=== PATIENT | female | born 1990 | race Caucasian/White ===

== ENCOUNTER 2023-07-25 17:05 | Emergency (ER) | payer OTHER ==
[2023-07-25 17:26] VITALS: O2SAT 100
[2023-07-25 17:56] LABS: BASOPHILS % (AUTO) 0.2 %; EOSINOPHILS # (AUTO) 0.1 10^3/uL (0.0-0.7); EOSINOPHILS % (AUTO) 1.1 %; HCT - HEMATOCRIT 36.1 % (37.0-47.0); HGB - HEMOGLOBIN 11.8 g/dL (12.0-16.0); LYMPHOCYTES # (AUTO) 2.7 10^3/uL (1.5-3.5); LYMPHOCYTES % (AUTO) 26.7 %; MEAN CORPUSCULAR HEMOGLOBIN 27.1 pg (27.0-31.0); MEAN CORPUSCULAR HGB CONC 32.7 g/dL (32.0-36.0); MEAN PLATELET VOLUME 10.2 fL (7.9-10.8); MONOCYTES # (AUTO) 0.6 10^3/uL (0.0-1.0); MONOCYTES % (AUTO) 5.5 %; NEUTROPHILS # (AUTO) 6.6 10^3/uL (1.5-6.6); NEUTROPHILS % (AUTO) 66.2 %; PLT - PLATELET COUNT 331 10^3/uL (130-450); RED BLOOD COUNT 4.35 10^6/uL (4.20-5.40); RED CELL DISTRIBUTION WIDTH 12.7 % (12.0-15.0)
[2023-07-25 18:08] LABS: BILIRUBIN,URINE NEGATIVE (NEGATIVE); GLUCOSE, URINE (UA) NEGATIVE (NEGATIVE); KETONES,URINE (UA) NEGATIVE (NEGATIVE); LEUKOCYTE ESTERASE, URINE NEGATIVE (NEGATIVE); NITRITE,URINE NEGATIVE (NEGATIVE); OCCULT BLOOD,URINE LARGE (NEGATIVE); PROTEIN,URINE TRACE mg/dL (NEGATIVE); UROBILINOGEN,URINE 0.2 (NORMAL) E.U./dL (NORMAL)
[2023-07-25 18:10] LABS: ALBUMIN/GLOBULIN RATIO 1.5 (1.0-2.2); BILIRUBIN,TOTAL 0.2 mg/dL (0.2-1.0); CALCIUM 9.1 mg/dL (8.5-10.3); CREATININE 0.6 mg/dL (0.6-1.3); POTASSIUM 3.7 mmol/L (3.5-4.5); TOTAL PROTEIN 6.7 g/dL (6.4-8.9)
[2023-07-25 18:10] LABS: CLARITY,URINE CLOUDY (CLEAR); HCG UR QUAL NEGATIVE
[2023-07-25 18:13] LABS: PT - PROTHROMBIN TIME 11.2 secs (9.9-12.6)
[2023-07-25 18:18] LABS: BACTERIA,URINE Rare /HPF (None Seen); RBC,URINE TNTC /HPF (0-5); SQUAMOUS EPITHELIAL CELL,UR RARE Squamous (<= Few); WBC,URINE 0-3 /HPF (0-5)
[2023-07-25 18:20] LABS: PARTIAL THROMBOPLASTIN TIME 35.5 secs (24.9-33.3)
--- NOTE | 2023-07-25 18:58 | Ultrasound Report ---
PROCEDURE: Pelvic w/Transvag+Doppler Comp INDICATIONS: vaginal bleeding TECHNIQUE: Real-time scanning was performed of the pelvic organs, with image documentation. Additional endovagi nal scanning was necessary due to incomplete visualization of the adnexal and endometrial structures by transabdominal scanning. Doppler interrogation was performed of the ovaries bilaterally. COMPARISON: None. FINDINGS: Uterus: 8.5 x 4.8 x 5.6 cm. Retroverted positioning. Endometrium measures up to 19 mm, there is incre ased vascularity. Ovaries: Right ovarian volume is 14 cc. Left ovarian volume is 27 cc. There is a cyst in the left ova ry measuring up to 3.8 x 2.8 cm. Color and spectral Doppler: flows are documented Other: Small amount of free fluid is present. IMPRESSION: Endometrium measures at the upper limit of normal, depending on menstrual cycle timing. There is mild ly increased vascularity. No distinct mass. Clinical follow-up recommended. MRI could be obtained if there is high concern. Bilateral ovarian follicles and cysts. No evidence of torsion. Reviewed by: Dre Montero MD on 07/25/2023 6:57 PM PDT Approved by: Dre Montero MD on 07/25/2023 6:57 PM PDT Station ID: [id number]
[2023-07-25] MEDS ORDERED: TRANEXAMIC ACID 1,000 MG in SODIUM CHLORIDE 0.9% 100ML 100 ML IV STA (19:04)
--- NOTE | 2023-07-25 19:07 | ED Physician Documentation ---
History of Present Illness - Stated complaint Stated Complaint: ,DIZZY,STONE - Chief complaint Chief Complaint: General - History obtained from History obtained from: Patient - History of Present Illness Timing: How many days ago (14) Pain level max: 2 Pain level now: 2 - Additonal information Additional information: 33-year-old female presents to the emergency department stating that she has had heavy vaginal bleeding for the past 14 days. She states her normal menstrual cycle was 26 days and she normally bleeds heavily for about 7 days. She felt lightheaded and dizzy today so came into the emergency department. Has not seen her PCP. Does not have a air pollution control engineer. No chest pain. Patient is not on any blood thinners. Review of Systems Constitutional: denies: Fever, Chills Respiratory: denies: Cough : denies: Now EGA Skin: denies: Rash Musculoskeletal: denies: Neck pain, Back pain Neurologic: denies: Headache PD PAST MEDICAL HISTORY - Past Medical History Past Medical History: No - Present Medications Home Medications: Ambulatory Orders Medication Instructions Recorded Confirmed Norethindrone AC-Eth Estradiol 1 tab PO DAILY #1 each 07/25/23 [Loestrin 21 1.5-30 Tablet] Sertraline [Zoloft] 25 mg PO DAILY 07/25/23 07/25/23 - Allergies Allergies/Adverse Reactions: Allergies Allergy/AdvReac Type Severity Reaction Status Date / Time No Known Drug Allergies Allergy Verified 07/25/23 17:22 - Living Situation Living Situation: reports: With family Living Arrangement: reports: At home - Social History Does the pt have substance abuse?: No - Family History Family history: reports: Non contributory PD ED PE NORMAL - Vitals Vital signs reviewed: Yes - General General: Alert and oriented X 3, No acute distress - HEENT HEENT: PERRL, Moist mucous membranes - Neck Neck: Supple, no meningeal sign - Cardiac Cardiac: RRR, Strong equal pulses - Respiratory Respiratory: No respiratory distress, Clear bilaterally - Abdomen Abdomen: Soft, Non tender, Non distended - Female Female : Pt declined - Derm Derm: Warm and dry - Extremities Extremities: No edema - Neuro Neuro: Alert and oriented X 3 - Psych Psych: Normal mood, Normal affect Results - Vitals Vitals: Vital Signs - 24 hr 07/25/23 07/25/23 17:18 19:22 Temperature 37.1 C Heart Rate 89 78 Respiratory 16 16 Rate Blood Pressure 120/74 109/78 O2 Saturation 100 100 Oxygen O2 Source Room air - Labs Labs: Laboratory Tests 07/25/23 07/25/23 07/25/23 17:30 17:50 17:50 WBC 10.0 RBC 4.35 Hgb 11.8 L Hct 36.1 L MCV 83.0 MCH 27.1 MCHC 32.7 RDW 12.7 Plt Count 331 MPV 10.2 Neut # (Auto) 6.6 Lymph # (Auto) 2.7 Hardy # (Auto) 0.6 Eos # (Auto) 0.1 Baso # (Auto) 0.0 Absolute Nucleated RBC 0.00 Nucleated RBC % 0.0 PT INR APTT Sodium 137 Potassium 3.7 Chloride 104 Carbon Dioxide 28 Anion Gap 5.0 L BUN 16 Creatinine 0.6 Estimated GFR (MDRD) 117 Glucose 94 Calcium 9.1 Total Bilirubin 0.2 AST 10 ALT 13 Alkaline Phosphatase 52 Total Protein 6.7 Albumin 4.0 Globulin 2.7 Albumin/Globulin Ratio 1.5 Lipase 22 Urine Color RED/BLOODY Urine Clarity CLOUDY Urine pH 7.0 Ur Specific Zillah 1.020 Urine Protein TRACE Urine Glucose (UA) NEGATIVE Urine Ketones NEGATIVE Urine Occult Blood LARGE H Urine Nitrite NEGATIVE Urine Bilirubin NEGATIVE Urine Urobilinogen 0.2 (NORMAL) Ur Leukocyte Esterase NEGATIVE Urine RBC TNTC H Urine WBC 0-3 Ur Squamous Epith Cells RARE Squamous Urine Bacteria Rare Ur Microscopic Review INDICATED Urine Culture Comments NOT INDICATED Urine HCG, Qual NEGATIVE 07/25/23 17:50 WBC RBC Hgb Hct MCV MCH MCHC RDW Plt Count MPV Neut # (Auto) Lymph # (Auto) Hardy # (Auto) Eos # (Auto) Baso # (Auto) Absolute Nucleated RBC Nucleated RBC % PT 11.2 INR 1.0 APTT 35.5 H Sodium Potassium Chloride Carbon Dioxide Anion Gap BUN Creatinine Estimated GFR (MDRD) Glucose Calcium Total Bilirubin AST ALT Alkaline Phosphatase Total Protein Albumin Globulin Albumin/Globulin Ratio Lipase Urine Color Urine Clarity Urine pH Ur Specific Zillah Urine Protein Urine Glucose (UA) Urine Ketones Urine Occult Blood Urine Nitrite Urine Bilirubin Urine Urobilinogen Ur Leukocyte Esterase Urine RBC Urine WBC Ur Squamous Epith Cells Urine Bacteria Ur Microscopic Review Urine Culture Comments Urine HCG, Qual - Rads (name of study) Pelvic ultrasound Relevant Findings:: Final report received, See rad report PD Medical Decision Making - ED course Complexity details: reviewed results, re-evaluated patient, considered differential, d/w patient, d/w applications development consultant ED course: Patient is a 33-year-old female with dysfunctional uterine bleeding and menorrhagia. No significant anemia. Ultrasound shows a thickened endometrium with mildly increased vascularity but no distinct mass. No evidence of ovarian torsion. Patient declines a pelvic exam. Discussed the case with Dr. Tran, Gynecology on-call who recommends OCP taper. The patient does not have any contraindications to this. No cancer history, no history of blood clots, no history of stroke. No history of migraines with aura. The pharmacies are closed in the area [facility], therefore the patient was given a gram of TXA IV to help with the bleeding. She is not hypotensive. Does not have any electrolyte abnormalities. Breathing without difficulty Patient will follow-up as an outpatient with gynecology. Patient counseled regarding signs and symptoms for which I believe and urgent re-evaluation would be necessary. Patient with good understanding of and agreement to plan and is comfortable going home at this time This document was made in part using voice recognition software. While efforts are made to proofread this document, sound alike and grammatical errors may occur. Departure - Departure Disposition: Home, Self Care Clinical Impression: Dysfunctional uterine bleeding Menorrhagia Qualifiers: Menorrhagia type: with regular cycle Qualified Code(s): N92.0 - Excessive and frequent menstruation with regular cycle Condition: Good Instructions: ED Bleed Irregular Vaginal Follow-Up: CANDY DE LA CRUZ PA [Primary Care Provider] - Lyle Britton MD [Provider Admit Priv/Credential] - Within 1 week Prescriptions: Norethindrone AC-Eth Estradiol [Loestrin 21 1.5-30 Tablet] 1 tab PO DAILY #1 each Comments: Your prescriptions were sent to [facility] in [place]. Please follow-up with gynecology for further care. I spoke with Dr. Reba jenkins. As we discussed, we will start you on control pills. Please take 3 tablets daily for 3 days then 2 tablets daily for 3 days, then finish the pack as prescribed. Please call the clinic on Saturday or Saturday to receive an appointment for follow-up. I gave your information to Dr. Britton and she will give your information to the clinic. Forms: PCP List Discharge Date/Time: 07/25/23 19:41
[2023-07-25] MEDS ORDERED: TRANEXAMIC ACID 1,000 MG/10 ML VIAL ONE (19:23)
[2023-07-25 19:50] VITALS: BP 109/78
== END 2023-07-25 19:41 | disposition home or self-care (01) ==
LOC: ED 17:05
DX: N93.8 Other specified abnormal uterine and vaginal bleeding (principal); N92.0 Excessive and frequent menstruation with regular cycle; Z79.3 Long term (current) use of hormonal contraceptives
CPT/HCPCS: 36415; 80053; 81001; 81003; 81025; 83690; 85025; 85610; 85730; 87086; 93975; 96365; 99283

== ENCOUNTER 2023-08-09 20:51 | Outpatient (CLI) | payer OTHER ==
--- NOTE | 2023-08-10 01:34 | Ultrasound Report ---
PROCEDURE: Pelvic w/Transvaginal INDICATIONS: MENORRHAGIA TECHNIQUE: Real-time scanning was performed of the pelvic organs, with image documentation. Additional endovagi nal scanning was necessary due to incomplete visualization of the adnexal and endometrial structures by transabdominal scanning. COMPARISON: 07/25/2023 FINDINGS: Uterus: Uterus is retroflexed and normal in size at 6.8 x 4.6 x 5.7 cm. The myometrium is homogeneo us. The endometrium measures 7 mm in combined thickness. No abnormal vascularity can be seen along the endometrial stripe. Ovaries: The right ovary measures 2.5 x 1.1 x 2.7 cm, with a calculated ovarian volume of 4 cc. The left ovary measures 2.4 x 1.5 x 3 cm, with a calculated ovarian volume of 5.7 cc. The left ovary de monstrates a 1.9 cm cystic follicle, which is considered to be within physiologic limits. The ovaries have a normal sonographic appearance. Less than 12 follicles can be seen in each ovary. No adnexal masses are seen. No cystic lesions measuring greater than 3 cm. Other: A small amount of free pelvic fluid can be seen within the left adnexal region and within the cul-de-sac. IMPRESSION: Pelvic ultrasound within normal limits, without a cause of menorrhagia identified. A small amount of free pelvic fluid is seen. Reviewed by: Antwon Contreras MD on 08/10/2023 12:33 AM AUDRA Approved by: Antwon Contreras MD on 08/10/2023 12:33 AM AUDRA Station ID: [id number]
== END 2023-08-09 20:52 | disposition home or self-care (01) ==
LOC: DI 20:51
PROVIDERS: ATTEND Student in an Organized Health Care Education/Training Program
DX: N92.0 Excessive and frequent menstruation with regular cycle (principal)

== ENCOUNTER 2023-09-05 08:00 | Outpatient (CLI) | payer OTHER ==
[2023-09-05 19:48] LABS: BACTERIAL VAGINOSIS DNA POSITIVE (NEGATIVE); CANDIDA GLABRATA DNA NEGATIVE (NEGATIVE); CANDIDA GROUP DNA NEGATIVE (NEGATIVE); CANDIDA KRUSEI DNA NEGATIVE (NEGATIVE); TRICHOMONAS VAGINALIS DNA NEGATIVE (NEGATIVE)
[2023-09-05 20:53] LABS: CHLAMYDIA TRACHOMATIS DNA NEGATIVE (NEGATIVE); NEISSERIA GONORRHOEAE DNA NEGATIVE (NEGATIVE)
== END 2023-09-05 23:59 | disposition home or self-care (01) ==
LOC: LAB.R 08:00
PROVIDERS: ATTEND Nurse Practitioner
DX: N89.8 Other specified noninflammatory disorders of vagina (principal)
CPT/HCPCS: 81514; 81599; 87109; 87491; 87591; 87661